=== PATIENT | male | born 1940 | race Caucasian/White ===

== ENCOUNTER 2017-08-04 08:43 | Day surgery (SDC) | payer BC, MEDICARE ==
[~2017-08-04 08:43] MED LIST: Bupivacaine 0.5% 50 ML MDV ONE; Lidocaine 1% with EPINEPHrine 1:100,000 50 ML MDV ONE
[2017-08-04] MEDS ORDERED: Sodium Chloride 0.9% 1,000 ML IV SCH (09:00)
[2017-08-04] MEDS ORDERED: Propofol 200 MG/20 ML SDV ONE (09:16)
[2017-08-04] MEDS ORDERED: Midazolam 1 MG/ML 2 ML SDV ONE (09:16)
[2017-08-04] MEDS ORDERED: fentaNYL 100 MCG/2 ML SDV ONE (09:16)
[2017-08-04] MEDS ORDERED: ceFAZolin 2 GM in Premix Bag 1 BAG IV ONE (10:00)
[2017-08-04] MEDS ORDERED: metroNIDAZOLE/Normal Saline 500 MG in Premix Bag 1 BAG IV ONE (10:00)
== END 2017-08-04 10:30 | disposition home or self-care (01) ==
LOC: JP.SDS 08:43
PROVIDERS: ATTEND Surgery
DX: K40.90 Unilateral inguinal hernia, without obstruction or gangrene, not specified as recurrent (principal); Z53.9 Procedure and treatment not carried out, unspecified reason
CPT/HCPCS: J2250; J2704; J3010; J7030

== ENCOUNTER 2017-08-31 12:16 | Emergency (ER) | payer BC ==
--- NOTE | 2017-08-31 13:39 | EDM.PDOC ---
ED HPI GENERAL MEDICAL PROBLEM - General Chief Complaint: General Stated Complaint: MEDICAL [facility]IA [facility] Time Seen by Provider: 08/31/17 13:39 Source of Information: Reports: Patient History Limitations: Reports: No Limitations - History of Present Illness INITIAL COMMENTS - FREE TEXT/NARRATIVE: PT ARRIVED WITH SWELLING AND INCREASED PAIN IN THE LEFT GROIN. hE HAD A STENT PUT IN TO GO TO THE [facility] AND FEMORAL Onset: Gradual, Other (LAST FEW DAYS) Duration: Day(s):, Getting Worse Location: Reports: Other (PAIN LEFT GROIN) Quality: Reports: Throbbing Associated Symptoms: Reports: No Other Symptoms Left Groin Pain Score (Numeric/FACES): 3 - Related Data Allergies Allergy/AdvReac Type Severity Reaction Status Date / Time amlodipine Allergy Swelling Verified 08/31/17 12:28 simvastatin Allergy Cough Verified 08/31/17 12:28 Home Meds: Home Meds Acetaminophen [Tylenol Extra Strength] 650 mg PO Q6H PRN 05/05/13 [History] Losartan [Cozaar] 25 mg PO DAILY 05/05/13 [History] Rosuvastatin [Crestor] 20 mg PO DAILY 08/02/17 [History] Past Medical History HEENT History: Reports: Hard of Hearing, Impaired Vision Cardiovascular History: Reports: High Cholesterol, Hypertension Gastrointestinal History: Reports: Chronic Constipation Genitourinary History: Reports: Other (See Below) Other Genitourinary History: only has one kidney Musculoskeletal History: Reports: Arthritis Neurological History: Reports: Concussion - Infectious Disease History Infectious Disease History: Reports: Chicken Pox, Measles, Mumps - Past Surgical History HEENT Surgical History: Reports: None Cardiovascular Surgical History: Reports: Carotid Stents GI Surgical History: Reports: Hernia, Inguinal Other GI Surgeries/Procedures: having inguinal hernia repair today Male Surgical History: Reports: Other (See Below) Other Male Surgeries/Procedures: one testicle removed Neurological Surgical History: Reports: None Musculoskeletal Surgical History: Reports: None Social & Family History - Tobacco Use Smoking Status *Q: Current Every Day Smoker Years of Tobacco use: 50 Packs/Tins Daily: 0.5 Used Tobacco, but Quit: No - Caffeine Use Caffeine Use: Reports: Coffee Caffeine Use Comment: 4 cups/daily - Recreational Drug Use Recreational Drug Use: No ED ROS GENERAL - Review of Systems Review Of Systems: See Below Constitutional: Reports: No Symptoms HEENT: Reports: No Symptoms Respiratory: Reports: No Symptoms Cardiovascular: Reports: No Symptoms Endocrine: Reports: No Symptoms GI/Abdominal: Reports: No Symptoms : Reports: No Symptoms Musculoskeletal: Reports: Other (PT HAS SHOOTING PAIN IN THE LEFT GROIN AND THAT HAS INCREASED. ) Neurological: Reports: No Symptoms, Other ( SHOOTING PAIN IN THE GROIN. ) ED EXAM, GENERAL - Physical Exam Exam: See Below Free Text/Narrative:: PT ARRIVED WITH SWELLING AND DISCOLORATION IN THE LEFT GROIN. hE HAS A PALBABLE HEMATOMA. hE HAS GREAT ARTERIAL PULSES PRESENT. Exam Limited By: No Limitations General Appearance: Alert, Moderate Distress Ears: Normal TMs Nose: Normal Inspection Throat/Mouth: Normal Inspection Head: Atraumatic Neck: Normal Inspection Respiratory/Chest: No Respiratory Distress Cardiovascular: Regular Rate, Rhythm GI/Abdominal: Soft, Non-Tender (Male) Exam: Deferred Rectal (Males) Exam: Deferred Back Exam: Normal Inspection Extremities: Other (LEFT LEG HAS A GREAT PULSE AND IS WARM. hE HAS A MASS IN THE GROIN. hE HAD AN US WHICH REVEALED A PSUEDOANEUYISM PRESENT. hE HAS POOR FLOW THROUGH THE LEFT FEMORAL VEIN. ) Neurological: Alert, Oriented Course - Vital Signs Last Recorded V/S: Last Vital Signs Temp 36.5 C 08/31/17 12:40 Pulse 88 08/31/17 12:40 Resp 14 08/31/17 12:40 BP 145/82 H 08/31/17 13:43 Pulse Ox 100 08/31/17 12:40 - Orders/Labs/Meds Orders: Active Orders 24 hr Category Date Time Status BASIC METABOLIC PANEL,BMP [CHEM] Stat Lab 08/31/17 15:05 Ordered CBC WITH AUTO DIFF [HEME] Urgent Lab 08/31/17 15:05 Ordered - Re-Assessments/Exams Free Text/Narrative Re-Assessment/Exam: 08/31/17 15:17 dR Mckeon WAS CONSULTED AND THE PT IS TO GO TO THE er AND HE WILL WORK ON THE PSEUDOANEUYISM. , Departure - Departure Time of Disposition: 15:18 Disposition: DC/Tfer to Acute Hospital 02 Condition: Fair Clinical Impression: Pseudoaneurysm - Discharge Information Referrals: PCP,None [Primary Care Provider] - Forms: ED Department Discharge Care Plan Goals: TO er AT [facility]. - My Orders Last 24 Hours: My Active Orders 08/31/17 15:05 BASIC METABOLIC PANEL,BMP [CHEM] Stat CBC WITH AUTO DIFF [HEME] Urgent - Assessment/Plan Last 24 Hours: My Active Orders 08/31/17 15:05 BASIC METABOLIC PANEL,BMP [CHEM] Stat CBC WITH AUTO DIFF [HEME] Urgent
--- NOTE | 2017-08-31 15:06 | US ---
VL Duplex [facility] CLINICAL HISTORY: Left inguinal mass, previous material catheterization FINDINGS: There is a hematoma in the left inguinal region adjoining the left femoral artery and measu res 6 x 4 x 5 cm. There is internal flow consistent with a pseudoaneurysm. The the neck measures appr oximately 5 mm anteriorly. There is compression of the femoral vein with significantly diminished gucci w. IMPRESSION: 6 x 5 x 4 cm hematoma with a 3.0 x 2.5 cm pseudoaneurysm off the common femoral artery. Compression of the common femoral vein with diminished flow Dr. Connolly was notified of the findings at the time of this dictation at 2:55 PM
[2017-08-31] MEDS ORDERED: Acetaminophen/oxyCODONE 325-7.5 MG Tab PO ONE (15:12)
[2017-08-31] MEDS ORDERED: Sodium Chloride 0.9% 10 ML Syringe FLUSH PRN (15:25)
[2017-08-31] MEDS ORDERED: Ondansetron 4 MG/2 ML SDV IVPUSH ONE (15:25)
[2017-08-31] MEDS ORDERED: HYDROmorphone 0.5 MG/0.5 ML Syringe IVPUSH ONE (15:25)
== END 2017-08-31 16:08 ==
LOC: JP.ED 12:16
DX: I72.9 Aneurysm of unspecified site (principal); E78.00 Pure hypercholesterolemia, unspecified; I10 Essential (primary) hypertension; F17.210 Nicotine dependence, cigarettes, uncomplicated; Z88.8 Allergy status to other drugs, medicaments and biological substances; Z79.899 Other long term (current) drug therapy
CPT/HCPCS: 36415; 80048; 85025; 93979; 96374; 96375; 99285; J1170; J2405; J7050

== ENCOUNTER 2020-02-06 07:16 | Inpatient (IN) | payer MEDICARE, BC ==
--- NOTE | 2020-02-06 08:12 | EDM.PDOC ---
ED HPI GENERAL MEDICAL PROBLEM - General Chief Complaint: Lower Extremity Injury/Pain Stated Complaint: HIP PAIN Time Seen by Provider: 02/06/20 07:50 Source of Information: Reports: Patient, Family History Limitations: Reports: No Limitations - History of Present Illness INITIAL COMMENTS - FREE TEXT/NARRATIVE: 79-year-old male is in with right hip pain after slipping on the ice and falling 2 days ago. He has pain centered in the right hip radiating down into the right femur to just above his knee. It is painful to bear weight and is using his 's walker to get around. No bruising or asymmetry, no other injury. He is usually very healthy and active. Onset: Sudden Duration: Day(s): (2 days ago) Location: Reports: Lower Extremity, Right Quality: Reports: Ache, Sharp Worsens with: Reports: Other (Weightbearing), Movement Associated Symptoms: Reports: No Other Symptoms - Related Data Allergies Allergy/AdvReac Type Severity Reaction Status Date / Time amlodipine Allergy Swelling Verified 02/06/20 08:04 aspirin Allergy Other Verified 02/06/20 08:04 rosuvastatin [From Crestor] Allergy Rash Verified 02/06/20 08:04 atorvastatin AdvReac Muscle Verified 02/06/20 08:04 Aches lisinopril AdvReac Cough Verified 02/06/20 08:04 simvastatin AdvReac Cough Verified 02/06/20 08:04 Home Meds: Home Meds Acetaminophen [Tylenol Extra Strength] 650 mg PO Q6H PRN 05/05/13 [History] Ezetimibe 10 mg PO DAILY 02/06/20 [History] Metoprolol Succinate 25 mg PO DAILY 02/06/20 [History] Past Medical History HEENT History: Reports: Hard of Hearing, Impaired Vision Cardiovascular History: Reports: Aneurysm, High Cholesterol, Hypertension Other Cardiovascular History: AAA repair - "years ago" Gastrointestinal History: Reports: Chronic Constipation, Colon Polyp Genitourinary History: Reports: Other (See Below) Other Genitourinary History: only has one kidney Musculoskeletal History: Reports: Arthritis Neurological History: Reports: Concussion - Infectious Disease History Infectious Disease History: Reports: Chicken Pox, Measles, Mumps, Pertussis (Whooping Cough), Shingles - Past Surgical History Head Surgeries/Procedures: Reports: None HEENT Surgical History: Reports: Cataract Surgery Cardiovascular Surgical History: Reports: AAA Repair, Carotid Stents, Other (See Below) Other Cardiovascular Surgeries/Procedures: left iliac aneurysm GI Surgical History: Reports: Colonoscopy, Hernia, Inguinal Other GI Surgeries/Procedures: having inguinal hernia repair today Male Surgical History: Reports: Other (See Below) Other Male Surgeries/Procedures: one testicle removed Neurological Surgical History: Reports: None Musculoskeletal Surgical History: Reports: None Dermatological Surgical History: Reports: None Social & Family History - Tobacco Use Tobacco Use Status *Q: Current Every Day Tobacco User Years of Tobacco use: 50 Packs/Tins Daily: 1 - Caffeine Use Caffeine Use: Reports: Coffee, Tea Caffeine Use Comment: 4 cups/daily - Recreational Drug Use Recreational Drug Use: No Review of Systems - Review of Systems Review Of Systems: See Below Constitutional: Denies: Fever Respiratory: Reports: No Symptoms Cardiovascular: Reports: No Symptoms GI/Abdominal: Reports: No Symptoms Genitourinary: Reports: No Symptoms Skin: Reports: No Symptoms. Denies: Bruising Neurological: Denies: Paresthesia (No numbness or radiculopathy to the extremities) Psychiatric: Reports: No Symptoms ED EXAM, GENERAL - Physical Exam Exam: See Below Exam Limited By: No Limitations General Appearance: Alert, No Apparent Distress, Other (Fairly comfortable when lying supine) Head: Atraumatic Respiratory/Chest: No Respiratory Distress, Lungs Clear Cardiovascular: Regular Rate, Rhythm GI/Abdominal: Non-Tender Extremities: Other (Very tender to palpation over the right greater trochanteric area into the proximal femur. Increased pain with passive range of motion but no asymmetry, shortening or rotation of the extremity) Neurological: Alert, Oriented Psychiatric: Normal Affect, Normal Mood Skin Exam: Warm, Dry, Other (No bruising is present over the injured area) Course - Vital Signs Last Recorded V/S: Last Vital Signs Temp 96.8 F L 02/06/20 12:20 Pulse 64 02/06/20 12:20 Resp 18 02/06/20 12:20 BP 177/92 H 02/06/20 12:20 Pulse Ox 97 02/06/20 12:20 - Orders/Labs/Meds Orders: Medication Orders Acetaminophen (Tylenol) 650 mg PO Q4H PRN PRN Reason: Pain (Mild 1-3)/fever Ezetimibe (Zetia) 10 mg PO DAILY SAUNDRA Hydromorphone HCl (Dilaudid) 0.5 mg IVPUSH Q2H PRN PRN Reason: Pain (severe 7-10) Lactated Ringer's (Ringers, Lactated) 1,000 mls @ 100 mls/hr IV ASDIRECTED SAUNDRA Lorazepam (Ativan) 0.5 mg IVPUSH Q4H PRN PRN Reason: Nausea/Vomiting Magnesium Hydroxide (Milk Of Magnesia) 30 ml PO Q12H PRN PRN Reason: Constipation Melatonin (Melatonin) 9 mg PO BEDTIME PRN PRN Reason: Sleep Metoprolol Succinate (Toprol Xl) 25 mg PO DAILY SAUNDRA Ondansetron HCl (Zofran) 4 mg IV Q6H PRN PRN Reason: Nausea/Vomiting Ondansetron HCl (Zofran Odt) 4 mg PO Q6H PRN PRN Reason: Nausea able to take PO Oxycodone HCl (Oxycodone) 5 - 10 mg PO Q4H PRN PRN Reason: Pain Senna/Docusate Sodium (Senna Plus) 1 tab PO BID PRN PRN Reason: Constipation Labs: Laboratory Tests 02/06/20 02/06/20 02/06/20 Range/Units 09:09 10:26 10:26 WBC 7.5 (4.5-11.0) K/uL RBC 5.52 (4.30-5.90) M/uL Hgb 16.0 H D (12.0-15.0) g/dL Hct 48.9 (40.0-54.0) % MCV 89 (80-98) fL MCH 29 (27-31) pg MCHC 33 (32-36) % Plt Count 116 L (150-400) K/uL Neut % (Auto) 77 H (36-66) % Lymph % (Auto) 13 L (24-44) % [place] % (Auto) 8 H (2-6) % Eos % (Auto) 2 (2-4) % Baso % (Auto) 1 (0-1) % Sodium 141 (140-148) mmol/L Potassium 3.9 (3.6-5.2) mmol/L Chloride 103 (100-108) mmol/L Carbon Dioxide 30 (21-32) mmol/L Anion Gap 8.1 (5.0-14.0) mmol/L BUN 15 (7-18) mg/dL Creatinine 1.3 (0.8-1.3) mg/dL Est Cr Clr Drug Dosing 50.68 mL/min Estimated GFR (MDRD) 54 L (>60) Glucose 94 (74-106) mg/dL Calcium 8.9 (8.5-10.1) mg/dL SARS-CoV-2 RNA (TIRSO) Negative (NEGATIVE) Meds: Medications Generic Name Dose Route Start Last Admin Trade Name Tang PRN Reason Stop Dose Admin Acetaminophen 650 mg 02/06/20 11:55 Tylenol PO Q4H PRN Pain (Mild 1-3)/fever Ezetimibe 10 mg 02/07/20 09:00 Zetia PO DAILY SAUNDRA Hydromorphone HCl 0.5 mg 02/06/20 11:55 Dilaudid IVPUSH Q2H PRN Pain (severe 7-10) Lactated Ringer's 1,000 mls @ 100 mls/hr 02/06/20 11:55 Ringers, Lactated IV ASDIRECTED [facility] Lorazepam 0.5 mg 02/06/20 11:55 Ativan IVPUSH Q4H PRN Nausea/Vomiting Magnesium Hydroxide 30 ml 02/06/20 11:55 Milk Of Magnesia PO Q12H PRN Constipation Melatonin 9 mg 02/06/20 11:55 Melatonin PO BEDTIME PRN Sleep Metoprolol Succinate 25 mg 02/07/20 09:00 Toprol Xl PO DAILY [facility] Ondansetron HCl 4 mg 02/06/20 11:55 Zofran IV Q6H PRN Nausea/Vomiting Ondansetron HCl 4 mg 02/06/20 11:55 Zofran Odt PO Q6H PRN Nausea able to take PO Oxycodone HCl 5 - 10 mg 02/06/20 11:55 Oxycodone PO Q4H PRN Pain Senna/Docusate Sodium 1 tab 02/06/20 11:55 Senna Plus PO BID PRN Constipation Discontinued Medications Generic Name Dose Route Start Last Admin Trade Name Tang PRN Reason Stop Dose Admin Bupivacaine HCl Confirm 02/06/20 11:52 Marcaine 0.5% Administered 02/06/20 11:53 Dose 50 ml .ROUTE .STK-MED ONE Fentanyl Confirm 02/06/20 10:42 Sublimaze Administered 02/06/20 10:43 Dose 100 mcg .ROUTE .STK-MED ONE Midazolam HCl Confirm 02/06/20 10:42 Versed 1 Mg/Ml Administered 02/06/20 10:43 Dose 2 mg .ROUTE .STK-MED ONE Propofol Confirm 02/06/20 10:42 Diprivan 20 Ml Administered 02/06/20 10:43 Dose 200 mg .ROUTE .STK-MED ONE - Re-Assessments/Exams Free Text/Narrative Re-Assessment/Exam: 02/06/20 08:12 A right hip with pelvis, and right femur x-rays were obtained. 02/06/20 09:12 X-ray shows a likely fracture of the intertrochanteric area, the CT was ordered as well as a coronavirus. 02/06/20 10:28 CT confirmed a minimally displaced intertrochanteric fracture on the right side. Patient will be admitted by the hospitalist service with consultation to orthopedics for surgical repair. 02/06/20 12:34 Coronavirus negative, labs reassuring Departure - Departure Time of Disposition: 11:20 Disposition: Admitted As Inpatient 68 Clinical Impression: Closed intertrochanteric fracture of right hip Qualifiers: Encounter type: initial encounter Fracture alignment: nondisplaced Qualified Code(s): S72.144A - Nondisplaced intertrochanteric fracture of right femur, initial encounter for closed fracture - Discharge Information Sepsis Event Note (ED) - Evaluation Sepsis Screening Result: No Definite Risk - Focused Exam Vital Signs: Vital Signs Temp Pulse Resp BP 02/06/20 07:34 98.4 F 70 18 165/97 H
--- NOTE | 2020-02-06 09:00 | CR ---
Pelvis 1V or 2V, Femur Min 2V Rt CLINICAL HISTORY: Pain, fall FINDINGS: There is some foreshortening of the right proximal femur. There is oblique linear lucency through the trochanteric region. There are osteoarthritic changes in both hips, greater on the right. Patient has had previous aorto iliac stent grafting. IMPRESSION: Intertrochanteric fracture right femur Femur Min 2V Rt CLINICAL HISTORY: Pain, fall FINDINGS: There is an intertrochanteric fracture of the right femur.. There is osteoarthritis in the right knee. 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
--- NOTE | 2020-02-06 10:14 | CT ---
CT Hip wo Cont Rt CLINICAL HISTORY: Femoral fracture COMPARISON: None TECHNIQUE: Thin section axial contiguous tomographic sections were obtained through the right hip without contrast. Auto dosage reduction and iterative reconstruction techniques employed. FINDINGS: There is a minimally displaced fracture through the greater trochanter. There is also cortical defect in the medial posterior portion of the lesser trochanter. There is no hematoma. There are osteoarthritic changes in the acetabulum with subchondral cyst formation. There is periarticular spurring. IMPRESSION: Minimally displaced intertrochanteric fracture of the right femur Osteoarthritis in the right hip
[2020-02-06] MEDS ORDERED: Propofol 200 MG/20 ML SDV ONE (10:42)
[2020-02-06] MEDS ORDERED: fentaNYL 100 MCG/2 ML SDV ONE (10:42)
[2020-02-06] MEDS ORDERED: Midazolam 1 MG/ML 2 ML SDV ONE (10:42)
--- NOTE | 2020-02-06 11:04 | PCM.HP.2 ---
H&P History of Present Illness - General Date of Service: 02/06/20 Admit Problem/Dx: Admission Diagnosis/Problem Admission Diagnosis/Problem Fracture of hip Source of Information: Patient, Family, Provider History Limitations: Reports: No Limitations - History of Present Illness Initial Comments - Free Text/Narative: CC: I hurt my hip HPI: Jhony presents to the emergency room with 3 days of right hip pain that started after a fall at home. He describes severe and sharp pain in the right hip with any sort of weightbearing or bending at the hip. Pain gets better when he lays down and relaxes. Tylenol helped the pain as well. Pain has not been getting better so he thought he better get checked out today. His fall was mechanical and accidental. Otherwise he feels well. No recent difficulties with fevers, shortness of breath or chest pain. No change in bowel or bladder habits. Good functional status and he can achieve more than 4 METS without any difficulty. No previous history of difficulty with anesthesia. Work-up in the emergency room revealed evidence for a mildly displaced intertrochanteric fracture of the right hip. He will be admitted for surgical management. Right Hip Pain Score (Numeric/FACES): 3 - Related Data Allergies/Adverse Reactions: Allergies Allergy/AdvReac Type Severity Reaction Status Date / Time amlodipine Allergy Swelling Verified 02/06/20 08:04 aspirin Allergy Other Verified 02/06/20 08:04 rosuvastatin [From Crestor] Allergy Rash Verified 02/06/20 08:04 atorvastatin AdvReac Muscle Verified 02/06/20 08:04 Aches lisinopril AdvReac Cough Verified 02/06/20 08:04 simvastatin AdvReac Cough Verified 02/06/20 08:04 Home Medications: Home Meds Acetaminophen [Tylenol Extra Strength] 650 mg PO Q6H PRN 05/05/13 [History] Ezetimibe 10 mg PO DAILY 02/06/20 [History] Metoprolol Succinate 25 mg PO DAILY 02/06/20 [History] Past Medical History HEENT History: Reports: Hard of Hearing, Impaired Vision Cardiovascular History: Reports: Aneurysm, High Cholesterol, Hypertension Other Cardiovascular History: AAA repair - "years ago" Gastrointestinal History: Reports: Chronic Constipation, Colon Polyp Genitourinary History: Reports: Other (See Below) Other Genitourinary History: only has one kidney Musculoskeletal History: Reports: Arthritis Neurological History: Reports: Concussion - Infectious Disease History Infectious Disease History: Reports: Chicken Pox, Measles, Mumps, Pertussis (Whooping Cough), Shingles - Past Surgical History Head Surgeries/Procedures: Reports: None HEENT Surgical History: Reports: Cataract Surgery Cardiovascular Surgical History: Reports: AAA Repair, Carotid Stents, Other (See Below) Other Cardiovascular Surgeries/Procedures: left iliac aneurysm GI Surgical History: Reports: Colonoscopy, Hernia, Inguinal Other GI Surgeries/Procedures: having inguinal hernia repair today Male Surgical History: Reports: Other (See Below) Other Male Surgeries/Procedures: one testicle removed Neurological Surgical History: Reports: None Musculoskeletal Surgical History: Reports: None Dermatological Surgical History: Reports: None Social & Family History - Family History Cardiac: Denies: CAD Other Family History: No family history of difficulty with anesthesia - Tobacco Use Tobacco Use Status *Q: Current Every Day Tobacco User Years of Tobacco use: 50 Packs/Tins Daily: 1 - Caffeine Use Caffeine Use: Reports: Coffee, Tea Caffeine Use Comment: 4 cups/daily - Recreational Drug Use Recreational Drug Use: No H&P Review of Systems - Review of Systems: Review Of Systems: See Below Free Text/Narrative: A complete 12 point review of systems was obtained. Pertinent positives and negatives are noted in the history of present illness. All other systems were reviewed and were negative except as noted. Exam - Exam Exam: See Below - Vital Signs Vital Signs: Last Vital Signs Temp 36.9 C 02/06/20 07:34 Pulse 70 02/06/20 07:34 Resp 18 02/06/20 07:34 BP 165/97 H 02/06/20 07:34 Pulse Ox Weight: 79.832 kg - Exam Quality Assessment: No: Supplemental Oxygen General: Alert, Oriented, Cooperative. No: Mild Distress HEENT: Conjunctiva Clear, Mucosa Moist & [place] Neck: Supple, Trachea Midline. No: Lymphadenopathy Lungs: Clear to Auscultation, Normal Respiratory Effort Cardiovascular: Regular Rate, Regular Rhythm GI/Abdominal Exam: Normal Bowel Sounds, Soft, Non-Tender, No Distention Extremities: No Pedal Edema, Other (ttp right lateral hip ). No: Increased Warmth Skin: Warm, Dry Neuro Extensive - Mental Status: Alert, Oriented x3, Nl Response to Commands Neuro Extensive - Motor, Sensory, Reflexes: No: Dysarthria, Abnormal Motor, Tremor Psychiatric: Alert, Normal Affect - Patient Data Lab Results Last 24 hrs: Laboratory Results - last 24 hr 02/06/20 02/06/20 02/06/20 Range/Units 09:09 10:26 10:26 WBC 7.5 (4.5-11.0) K/uL RBC 5.52 (4.30-5.90) M/uL Hgb 16.0 H D (12.0-15.0) g/dL Hct 48.9 (40.0-54.0) % MCV 89 (80-98) fL MCH 29 (27-31) pg MCHC 33 (32-36) % Plt Count 116 L (150-400) K/uL Neut % (Auto) 77 H (36-66) % Lymph % (Auto) 13 L (24-44) % [place] % (Auto) 8 H (2-6) % Eos % (Auto) 2 (2-4) % Baso % (Auto) 1 (0-1) % Sodium 141 (140-148) mmol/L Potassium 3.9 (3.6-5.2) mmol/L Chloride 103 (100-108) mmol/L Carbon Dioxide 30 (21-32) mmol/L Anion Gap 8.1 (5.0-14.0) mmol/L BUN 15 (7-18) mg/dL Creatinine 1.3 (0.8-1.3) mg/dL Est Cr Clr Drug Dosing 50.68 mL/min Estimated GFR (MDRD) 54 L (>60) Glucose 94 (74-106) mg/dL Calcium 8.9 (8.5-10.1) mg/dL SARS-CoV-2 RNA (TIRSO) Negative (NEGATIVE) Result Diagrams: 02/06/20 10:26 02/06/20 10:26 Imaging Impressions Last 24 hrs: Images below were all personally reviewed Right hip XR -no evidence for pelvis fracture. Possible fracture of the right greater trochanter Right hip CT -mildly displaced intertrochanteric fracture of the right hip Sepsis Event Note - Evaluation Sepsis Screening Result: No Definite Risk - Focused Exam Vital Signs: Vital Signs Temp Pulse Resp BP 02/06/20 07:34 36.9 C 70 18 165/97 H *Q Meaningful Use (ADM) - VTE *Q VTE Pharmacological Contraindications *Q: Patient Scheduled Surgery - VTE Risk Assess *Q Each Risk Factor Represents 1 Point: None Total Score 1 Point Risk Factors: 0 Each Risk Factor Represents 2 Points: None Total Score 2 Point Risk Factors: 0 Each Risk Factor Represents 3 Points: Age 75 Years or Greater Total Score 3 Point Risk Factors: 3 Each Risk Factor Represents 5 Points: Hip, Pelvis or Leg Fracture, Less than 1 month Total Score 5 Point Risk Factors: 5 Venous Thromboembolism Risk Factor Score *Q: 8 - Problem List (1) Closed intertrochanteric fracture of right hip SNOMED Code(s): 97595459, [id number] ICD Code: S72.141A - DISPLACED INTERTROCHANTERIC FRACTURE OF RIGHT FEMUR, INIT Status: Acute Current Visit: Yes Qualifiers: Encounter type: initial encounter Fracture alignment: nondisplaced Qualified Code(s): S72.144A - Nondisplaced intertrochanteric fracture of right femur, initial encounter for closed fracture Problem List Initiated/Reviewed/Updated: Yes Orders Last 24hrs: Active Orders 24 hr Category Date Time Status Patient Status Manage Transfer [TRANSFER] Routine ADT 02/06/20 10:57 Ordered Resuscitation Status Routine Resus Stat 02/06/20 10:57 Ordered Assessment/Plan Comment:: ASSESSMENT AND PLAN - Mildly displaced intertrochanteric fracture right hip-secondary to mechanical fall at home. Excellent functional status. No obvious contraindications to surgery. No personal or family history of difficulty with anesthesia. Pain controlled at this time. -Surgical intervention with Dr Con Frazier later today -Pain control -Physical therapy tomorrow Maintenance issues - - DVT prophylaxis -mechanical - GI prophylaxis -not indicated - Nutrition -n.p.o. until after surgery - Soares catheter -not indicated at this time CODE STATUS -full code Admission justification - this patient will be admitted for inpatient services and is medically appropriate meeting medical necessity for inpatient admission as outlined in my documentation. I reasonably expect the patient will require inpatient services that span a period time over 2 midnights. I reasonably expect this patient to be discharged or transferred within 96 hours [facility]. Disposition -I would anticipate discharge home after the hospital stay Primary care physician -Dr. Ines Shirley M.D. - Mortality Measure Prognosis:: Good
[2020-02-06] MEDS ORDERED: Bupivacaine 0.5% 50 ML MDV ONE (11:52)
[2020-02-06] MEDS ORDERED: Magnesium Hydroxide 400 MG/5 ML Susp 30 ML Cup PO PRN (11:55)
[2020-02-06] MEDS ORDERED: Ondansetron 4 MG/2 ML SDV IV PRN (11:55)
[2020-02-06] MEDS ORDERED: Ondansetron 4 MG Tab.DIS PO PRN (11:55)
[2020-02-06] MEDS ORDERED: Melatonin 3 MG Tab PO PRN (11:55)
[2020-02-06] MEDS ORDERED: LORazepam 2 MG/ML SDV IVPUSH PRN (11:55)
[2020-02-06] MEDS ORDERED: HYDROmorphone 1 MG/ML Syringe IVPUSH PRN (11:55)
[2020-02-06] MEDS ORDERED: ceFAZolin 2 GM in Premix Bag 1 BAG IV ONE (13:05)
[2020-02-06] MEDS ORDERED: ceFAZolin 1 GM in Sodium Chloride 0.9% 50 ML IV SCH (14:15)
[2020-02-06] MEDS: Lactated Ringers 1,000 ML IV SCH (15:00)
[2020-02-06] MEDS: oxyCODONE 5 MG Tab PO PRN (15:06)
[2020-02-06] MEDS: ceFAZolin 1 GM in Premix Bag 1 BAG IV SCH (20:25)
[2020-02-07] MEDS: Lactated Ringers 1,000 ML IV SCH (00:57)
[2020-02-07] MEDS: ceFAZolin 1 GM in Premix Bag 1 BAG IV SCH (04:14)
[2020-02-07] MEDS: Ezetimibe 10 MG Tab PO SCH (08:11)
[2020-02-07] MEDS: Acetaminophen 325 MG Tab PO PRN ×2 (08:11→18:00)
[2020-02-07] MEDS: Metoprolol Succinate 25 MG Tab.ER PO SCH (08:11)
[2020-02-07] MEDS: Enoxaparin 40 MG/0.4 ML Syringe SUBCUT SCH (08:11)
--- NOTE | 2020-02-07 10:30 | PCM.PN ---
- General Info Date of Service: 02/07/20 Subjective Update: No acute events overnight. Patient had successful surgery to repair his hip fracture yesterday afternoon. He did have some confusion postoperatively but seems to be doing better today. He had moderate hypertension postoperatively but blood pressures are trending down. Pain is well controlled. He has not had any fevers. No nausea or abdominal pain. Functional Status: Reports: Pain Controlled, Tolerating Diet - Review of Systems General: Denies: Fever - Patient Data Vitals - Most Recent: Last Vital Signs Temp 37.1 C 02/07/20 10:16 Pulse 76 02/07/20 10:16 Resp 18 02/07/20 10:16 BP 156/79 H 02/07/20 10:16 Pulse Ox 98 02/07/20 10:16 Weight - Most Recent: 79.832 kg I&O - Last 24 Hours: Intake & Output 02/06/20 02/07/20 02/07/20 22:59 06:59 14:59 Intake Total 252 2331 400 Output Total 585 300 Balance -333 2031 400 Lab Results Last 24 Hours: Laboratory Results - last 24 hr 02/06/20 02/06/20 02/07/20 Range/Units 10:26 10:26 04:33 WBC 7.5 9.0 (4.5-11.0) K/uL RBC 5.52 4.84 (4.30-5.90) M/uL Hgb 16.0 H D 14.1 (12.0-15.0) g/dL Hct 48.9 43.3 (40.0-54.0) % MCV 89 90 (80-98) fL MCH 29 29 (27-31) pg MCHC 33 33 (32-36) % Plt Count 116 L 105 L (150-400) K/uL Neut % (Auto) 77 H (36-66) % Lymph % (Auto) 13 L (24-44) % [place] % (Auto) 8 H (2-6) % Eos % (Auto) 2 (2-4) % Baso % (Auto) 1 (0-1) % Sodium 141 (140-148) mmol/L Potassium 3.9 (3.6-5.2) mmol/L Chloride 103 (100-108) mmol/L Carbon Dioxide 30 (21-32) mmol/L Anion Gap 8.1 (5.0-14.0) mmol/L BUN 15 (7-18) mg/dL Creatinine 1.3 (0.8-1.3) mg/dL Est Cr Clr Drug Dosing 50.68 mL/min Estimated GFR (MDRD) 54 L (>60) Glucose 94 (74-106) mg/dL Calcium 8.9 (8.5-10.1) mg/dL Med Orders - Current: Current Medications Acetaminophen (Tylenol) 650 mg PO Q4H PRN PRN Reason: Pain (Mild 1-3)/fever Last Admin: 02/07/20 08:11 Dose: 650 mg Documented by: Ezetimibe (Zetia) 10 mg PO DAILY COUNTS [facility]CLUDE 234 BEDS AT THE [facility] Last Admin: 02/07/20 08:11 Dose: 10 mg Documented by: Enoxaparin Sodium (Lovenox) 40 mg SUBCUT DAILY COUNTS INCLUDE 234 BEDS AT THE [facility] Last Admin: 02/07/20 08:11 Dose: 40 mg Documented by: Hydromorphone HCl (Dilaudid) 0.5 mg IVPUSH Q2H PRN PRN Reason: Pain (severe 7-10) Last Admin: 02/06/20 15:08 Dose: 0.5 mg Documented by: Lactated Ringer's (Ringers, Lactated) 1,000 mls @ 100 mls/hr IV ASDIRECTED COUNTS INCLUDE 234 BEDS AT THE [facility] Last Admin: 02/07/20 00:57 Dose: 100 mls/hr Documented by: Lorazepam (Ativan) 0.5 mg IVPUSH Q4H PRN PRN Reason: Nausea/Vomiting Magnesium Hydroxide (Milk Of Magnesia) 30 ml PO Q12H PRN PRN Reason: Constipation Melatonin (Melatonin) 9 mg PO BEDTIME PRN PRN Reason: Sleep Metoprolol Succinate (Toprol Xl) 25 mg PO DAILY COUNTS INCLUDE 234 BEDS AT THE [facility] Last Admin: 02/07/20 08:11 Dose: 25 mg Documented by: Ondansetron HCl (Zofran) 4 mg IV Q6H PRN PRN Reason: Nausea/Vomiting Ondansetron HCl (Zofran Odt) 4 mg PO Q6H PRN PRN Reason: Nausea able to take PO Oxycodone HCl (Oxycodone) 5 - 10 mg PO Q4H PRN PRN Reason: Pain Last Admin: 02/06/20 15:06 Dose: 10 mg Documented by: Senna/Docusate Sodium (Senna Plus) 1 tab PO BID PRN PRN Reason: Constipation Discontinued Medications Bupivacaine HCl (Marcaine 0.5%) Confirm Administered Dose 50 ml .ROUTE .STK-MED ONE Stop: 02/06/20 11:53 Fentanyl (Sublimaze) Confirm Administered Dose 100 mcg .ROUTE .STK-MED ONE Stop: 02/06/20 10:43 Cefazolin Sodium/Dextrose 2 gm (/ Premix) 50 mls @ 100 mls/hr IV ONETIME ONE Stop: 02/06/20 13:34 Last Admin: 02/06/20 13:07 Dose: 100 mls/hr Documented by: Cefazolin Sodium/Dextrose 1 gm (/ Premix) 50 mls @ 100 mls/hr IV Q8H SAUNDRA Stop: 02/07/20 05:29 Last Admin: 02/07/20 04:14 Dose: 100 mls/hr Documented by: Midazolam HCl (Versed 1 Mg/Ml) Confirm Administered Dose 2 mg .ROUTE .STK-MED ONE Stop: 02/06/20 10:43 Propofol (Diprivan 20 Ml) Confirm Administered Dose 200 mg .ROUTE .STK-MED ONE Stop: 02/06/20 10:43 - Exam Quality Assessment: No: Supplemental Oxygen General: Alert, Oriented, Cooperative, No Acute Distress Lungs: Normal Respiratory Effort GI/Abdominal Exam: Soft, No Distention Extremities: No Pedal Edema Skin: Warm, Dry Wound/Incisions: Dressing Dry and Intact Psy/Mental Status: Alert, Normal Affect Sepsis Event Note - Evaluation Sepsis Screening Result: No Definite Risk - Focused Exam Vital Signs: Vital Signs Temp Temp Pulse Pulse Resp BP BP 02/07/20 10:16 37.1 C 76 18 156/79 H 02/07/20 08:11 74 163/64 H 02/07/20 06:53 36.7 C 75 18 163/84 H 02/07/20 03:46 36.4 C 73 18 142/87 H 02/06/20 22:36 37 C 82 16 136/86 Pulse Ox 02/07/20 10:16 98 02/07/20 08:11 02/07/20 06:53 94 L 02/07/20 03:46 94 L 02/06/20 22:36 94 L - Problem List & Annotations (1) Closed intertrochanteric fracture of right hip SNOMED Code(s): 49039736, 28234482280157304 Code(s): S72.141A - DISPLACED INTERTROCHANTERIC FRACTURE OF RIGHT FEMUR, INIT Status: Acute Current Visit: Yes Qualifiers: Encounter type: initial encounter Fracture alignment: nondisplaced Qualified Code(s): S72.144A - Nondisplaced intertrochanteric fracture of right femur, initial encounter for closed fracture - Problem List Review Problem List Initiated/Reviewed/Updated: Yes - My Orders Last 24 Hours: My Active Orders 02/06/20 10:57 Resuscitation Status Routine 02/06/20 11:55 Acetaminophen [TylenoL] 650 mg PO Q4H PRN Docusate Sodium/Sennosides [Senna Plus] 1 tab PO BID PRN HYDROmorphone [Dilaudid] 0.5 mg IVPUSH Q2H PRN LORazepam [Ativan] 0.5 mg IVPUSH Q4H PRN Lactated Ringers [Ringers, Lactated] 1,000 ml IV ASDIRECTED Magnesium Hydroxide [Milk of Magnesia] 30 ml PO Q12H PRN Melatonin 9 mg PO BEDTIME PRN Ondansetron [Zofran ODT] 4 mg PO Q6H PRN Ondansetron [Zofran] 4 mg IV Q6H PRN oxyCODONE 5 - 10 mg PO Q4H PRN 02/06/20 11:55 Patient Status [ADT] Routine Notify Provider Vital Signs [RC] ASDIRECTED Oxygen Therapy [RC] PRN Up With Assistance [RC] ASDIRECTED VTE/DVT Education [RC] Per Unit Routine Vital Signs [RC] Q4H Consult to Physician [CONS] Routine Sequential Compression Device [OM.PC] Routine VTE Pharmacological Contraindications [AST] Routine 02/07/20 09:00 Ezetimibe [Zetia] 10 mg PO DAILY Metoprolol Succinate [Toprol XL] 25 mg PO DAILY 02/07/20 10:28 Convert IV to Saline Lock [OM.PC] Routine 02/07/20 10:29 DC Soares Catheter [Urinary Catheter Removal] [RC] PER UNIT ROUTINE 02/08/20 05:00 BASIC METABOLIC PANEL,BMP [CHEM] Timed HGB [HEMOGLOBIN] [HEME] Timed - Plan Plan:: ASSESSMENT AND PLAN - Mildly displaced intertrochanteric fracture right hip-secondary to mechanical fall at home. Status post supracondylar IM nailing 02/05. Doing well postoperatively. Pain well controlled. He has been up with physical therapy. -Postoperative care per orthopedic team -Pain control -Physical therapy -Weightbearing as tolerated Maintenance issues - - DVT prophylaxis -mechanical - GI prophylaxis -not indicated - Nutrition -regular diet - Soares catheter -placed at the time of surgery yesterday, will be removed today Disposition -I would anticipate discharge home after the hospital stay Primary care physician -Dr. Ines Shirley M.D.
--- NOTE | 2020-02-07 16:21 | PCM.SURGPN ---
- General Info Date of Service: 02/07/20 Date of Surgery/Procedure: 02/06/20 Post-Op Diagnosis: Intertrochanteric Fracture of Right Hip Functional Status: Reports: Pain Controlled, Tolerating Diet, Ambulating, Incentive Spirometry - Review of Systems General: Reports: No Symptoms HEENT: Reports: No Symptoms Pulmonary: Reports: No Symptoms Cardiovascular: Reports: No Symptoms Gastrointestinal: Reports: No Symptoms Genitourinary: Reports: No Symptoms Musculoskeletal: Reports: Leg Pain Skin: Reports: No Symptoms Psychiatric: Reports: No Symptoms - Patient Data Vitals - Most Recent: Last Vital Signs Temp 97.6 F 02/07/20 14:43 Pulse 82 02/07/20 14:43 Resp 16 02/07/20 14:43 BP 136/78 02/07/20 14:43 Pulse Ox 99 02/07/20 14:43 Weight - Most Recent: 176 lb I&O - Last 24 Hours: Intake & Output 02/07/20 02/07/20 02/07/20 06:59 14:59 22:59 Intake Total 2331 2285 Output Total 300 225 300 Balance 2031 2060 -300 Lab Results Last 24 Hrs: Laboratory Results - last 24 hr 02/07/20 Range/Units 04:33 WBC 9.0 (4.5-11.0) K/uL RBC 4.84 (4.30-5.90) M/uL Hgb 14.1 (12.0-15.0) g/dL Hct 43.3 (40.0-54.0) % MCV 90 (80-98) fL MCH 29 (27-31) pg MCHC 33 (32-36) % Plt Count 105 L (150-400) K/uL Med Orders - Current: Current Medications Acetaminophen (Tylenol) 650 mg PO Q4H PRN PRN Reason: Pain (Mild 1-3)/fever Last Admin: 02/07/20 08:11 Dose: 650 mg Documented by: Ezetimibe (Zetia) 10 mg PO DAILY [facility] Last Admin: 02/07/20 08:11 Dose: 10 mg Documented by: Enoxaparin Sodium (Lovenox) 40 mg SUBCUT DAILY [facility] Last Admin: 02/07/20 08:11 Dose: 40 mg Documented by: Hydromorphone HCl (Dilaudid) 0.5 mg IVPUSH Q2H PRN PRN Reason: Pain (severe 7-10) Last Admin: 02/06/20 15:08 Dose: 0.5 mg Documented by: Lorazepam (Ativan) 0.5 mg IVPUSH Q4H PRN PRN Reason: Nausea/Vomiting Magnesium Hydroxide (Milk Of Magnesia) 30 ml PO Q12H PRN PRN Reason: Constipation Melatonin (Melatonin) 9 mg PO BEDTIME PRN PRN Reason: Sleep Metoprolol Succinate (Toprol Xl) 25 mg PO DAILY [facility] Last Admin: 02/07/20 08:11 Dose: 25 mg Documented by: Ondansetron HCl (Zofran) 4 mg IV Q6H PRN PRN Reason: Nausea/Vomiting Ondansetron HCl (Zofran Odt) 4 mg PO Q6H PRN PRN Reason: Nausea able to take PO Oxycodone HCl (Oxycodone) 5 - 10 mg PO Q4H PRN PRN Reason: Pain Last Admin: 02/06/20 15:06 Dose: 10 mg Documented by: Senna/Docusate Sodium (Senna Plus) 1 tab PO BID PRN PRN Reason: Constipation Discontinued Medications Bupivacaine HCl (Marcaine 0.5%) Confirm Administered Dose 50 ml .ROUTE .STK-MED ONE Stop: 02/06/20 11:53 Fentanyl (Sublimaze) Confirm Administered Dose 100 mcg .ROUTE .STK-MED ONE Stop: 02/06/20 10:43 Lactated Ringer's (Ringers, Lactated) 1,000 mls @ 100 mls/hr IV ASDIRECTED [facility] Last Admin: 02/07/20 00:57 Dose: 100 mls/hr Documented by: Cefazolin Sodium/Dextrose 2 gm (/ Premix) 50 mls @ 100 mls/hr IV ONETIME ONE Stop: 02/06/20 13:34 Last Admin: 02/06/20 13:07 Dose: 100 mls/hr Documented by: Cefazolin Sodium/Dextrose 1 gm (/ Premix) 50 mls @ 100 mls/hr IV Q8H [facility] Stop: 02/07/20 05:29 Last Admin: 02/07/20 04:14 Dose: 100 mls/hr Documented by: Midazolam HCl (Versed 1 Mg/Ml) Confirm Administered Dose 2 mg .ROUTE .STK-MED ONE Stop: 02/06/20 10:43 Propofol (Diprivan 20 Ml) Confirm Administered Dose 200 mg .ROUTE .STK-MED ONE Stop: 02/06/20 10:43 - Exam Wound/Incisions: Dressing Dry and Intact, No Drainage General: Alert, Cooperative, No Acute Distress Extremities: Leg Pain, Limited Range of Motion Skin: Dry, Intact Psy/Mental Status: Alert, Normal Mood Sepsis Event Note - Evaluation Sepsis Screening Result: No Definite Risk - Focused Exam Vital Signs: Vital Signs Temp Pulse Pulse Resp BP BP Pulse Ox 02/07/20 14:43 97.6 F 82 16 136/78 99 02/07/20 10:16 98.8 F 76 18 156/79 H 98 02/07/20 08:11 74 163/64 H 02/07/20 06:53 98.1 F 75 18 163/84 H 94 L - Problem List & Annotations (1) Closed intertrochanteric fracture of right hip SNOMED Code(s): 85291538, [id number] Code(s): S72.141A - DISPLACED INTERTROCHANTERIC FRACTURE OF RIGHT FEMUR, INIT Status: Acute Current Visit: Yes Qualifiers: Encounter type: initial encounter Fracture alignment: nondisplaced Qualified Code(s): S72.144A - Nondisplaced intertrochanteric fracture of right femur, initial encounter for closed fracture - Problem List Review Problem List Initiated/Reviewed/Updated: Yes - My Orders Last 24 Hours: Active Orders 24 hr Category Date Time Status DC Soares Catheter [Urinary Catheter Removal] [RC] PER Care 02/07/20 10:29 Active UNIT ROUTINE Regular Diet [DIET] Diet 02/06/20 Dinner Active BASIC METABOLIC PANEL,BMP [CHEM] Timed Lab 02/08/20 05:00 Ordered HGB [HEMOGLOBIN] [HEME] Timed Lab 02/08/20 05:00 Ordered Enoxaparin [Lovenox] Med 02/07/20 09:00 Active 40 mg SUBCUT DAILY Ezetimibe [Zetia] Med 02/07/20 09:00 Active 10 mg PO DAILY Metoprolol Succinate [Toprol XL] Med 02/07/20 09:00 Active 25 mg PO DAILY Convert IV to Saline Lock [OM.PC] Routine Oth 02/07/20 10:28 Ordered Medication Orders Acetaminophen (Tylenol) 650 mg PO Q4H PRN PRN Reason: Pain (Mild 1-3)/fever Last Admin: 02/07/20 08:11 Dose: 650 mg Documented by: WILLOW Cosigned by: GEOVANY Ezetimibe (Zetia) 10 mg PO DAILY [facility] Last Admin: 02/07/20 08:11 Dose: 10 mg Documented by: WILLOW Cosigned by: GEOVANY Enoxaparin Sodium (Lovenox) 40 mg SUBCUT DAILY [facility] Last Admin: 02/07/20 08:11 Dose: 40 mg Documented by: WILLOW Cosigned by: GEOVANY Hydromorphone HCl (Dilaudid) 0.5 mg IVPUSH Q2H PRN PRN Reason: Pain (severe 7-10) Last Admin: 02/06/20 15:08 Dose: 0.5 mg Documented by: ANDREY Lorazepam (Ativan) 0.5 mg IVPUSH Q4H PRN PRN Reason: Nausea/Vomiting Magnesium Hydroxide (Milk Of Magnesia) 30 ml PO Q12H PRN PRN Reason: Constipation Melatonin (Melatonin) 9 mg PO BEDTIME PRN PRN Reason: Sleep Metoprolol Succinate (Toprol Xl) 25 mg PO DAILY [facility] Last Admin: 02/07/20 08:11 Dose: 25 mg Documented by: WILLOW Cosigned by: GEOVANY Ondansetron HCl (Zofran) 4 mg IV Q6H PRN PRN Reason: Nausea/Vomiting Ondansetron HCl (Zofran Odt) 4 mg PO Q6H PRN PRN Reason: Nausea able to take PO Oxycodone HCl (Oxycodone) 5 - 10 mg PO Q4H PRN PRN Reason: Pain Last Admin: 02/06/20 15:06 Dose: 10 mg Documented by: ANDREY Senna/Docusate Sodium (Senna Plus) 1 tab PO BID PRN PRN Reason: Constipation - Plan Plan (Free Text/Narrative):: Assessment: Patient is a pleasant 79 y/o male, POD #1, status post intramedullary nailing of right intertrochanteric fracture of the hip. Patient tolerated procedure well. He had some post-operative hypertension; blood pressure this afternoon was within normal limits. Patient had some nausea following the operation that has since resolved; ate meals today in the chair. Patient was up with physical therapy ambulating with four wheel walker. Pain is well managed at this time. Plan: Orthopedics to perform dressing change tomorrow morning. Patient to continue with PT and OT tomorrow. Upon discharge, patient will complete outpatient PT and follow up with the Ortho [facility] in 2 weeks.
[2020-02-07] MEDS: oxyCODONE 5 MG Tab PO PRN (20:17)
[2020-02-08] MEDS: Acetaminophen 325 MG Tab PO PRN (07:30)
[2020-02-08] MEDS: Enoxaparin 40 MG/0.4 ML Syringe SUBCUT SCH (08:36)
[2020-02-08] MEDS: Ezetimibe 10 MG Tab PO SCH (08:37)
[2020-02-08] MEDS: Metoprolol Succinate 25 MG Tab.ER PO SCH (08:37)
--- NOTE | 2020-02-08 10:37 | PCM.SURGPN ---
- General Info Date of Service: 02/08/20 Date of Surgery/Procedure: 02/06/20 Post-Op Diagnosis: Intertrochanteric Fracture of Right Hip Functional Status: Reports: Pain Controlled, Tolerating Diet, Ambulating (with four wheel walker ), Urinating - Review of Systems General: Reports: No Symptoms Pulmonary: Reports: No Symptoms Cardiovascular: Reports: No Symptoms Gastrointestinal: Reports: No Symptoms Genitourinary: Reports: No Symptoms Musculoskeletal: Reports: Leg Pain Skin: Reports: No Symptoms Neurological: Reports: No Symptoms Psychiatric: Reports: Confusion - Patient Data Vitals - Most Recent: Last Vital Signs Temp 97.4 F 02/08/20 07:00 Pulse 64 02/08/20 08:37 Resp 18 02/08/20 07:00 BP 165/84 H 02/08/20 08:37 Pulse Ox 96 02/08/20 07:00 Weight - Most Recent: 176 lb I&O - Last 24 Hours: Intake & Output 02/07/20 02/08/20 02/08/20 22:59 06:59 14:59 Intake Total 240 800 400 Output Total 1600 600 Balance -1360 200 400 Lab Results Last 24 Hrs: Laboratory Results - last 24 hr 02/08/20 02/08/20 Range/Units 04:24 04:24 Hgb 12.5 (12.0-15.0) g/dL Sodium 141 (140-148) mmol/L Potassium 4.0 (3.6-5.2) mmol/L Chloride 105 (100-108) mmol/L Carbon Dioxide 28 (21-32) mmol/L Anion Gap 7.9 (5.0-14.0) mmol/L BUN 17 (7-18) mg/dL Creatinine 1.2 (0.8-1.3) mg/dL Est Cr Clr Drug Dosing 54.91 mL/min Estimated GFR (MDRD) 59 L (>60) Glucose 97 (74-106) mg/dL Calcium 8.6 (8.5-10.1) mg/dL Med Orders - Current: Current Medications Acetaminophen (Tylenol) 650 mg PO Q4H PRN PRN Reason: Pain (Mild 1-3)/fever Last Admin: 02/08/20 07:30 Dose: 650 mg Documented by: Ezetimibe (Zetia) 10 mg PO DAILY [facility] Last Admin: 02/08/20 08:37 Dose: 10 mg Documented by: Enoxaparin Sodium (Lovenox) 40 mg SUBCUT DAILY [facility] Last Admin: 02/08/20 08:36 Dose: 40 mg Documented by: Hydromorphone HCl (Dilaudid) 0.5 mg IVPUSH Q2H PRN PRN Reason: Pain (severe 7-10) Last Admin: 02/06/20 15:08 Dose: 0.5 mg Documented by: Lorazepam (Ativan) 0.5 mg IVPUSH Q4H PRN PRN Reason: Nausea/Vomiting Magnesium Hydroxide (Milk Of Magnesia) 30 ml PO Q12H PRN PRN Reason: Constipation Melatonin (Melatonin) 9 mg PO BEDTIME PRN PRN Reason: Sleep Last Admin: 02/07/20 20:17 Dose: 9 mg Documented by: Metoprolol Succinate (Toprol Xl) 25 mg PO DAILY [facility] Last Admin: 02/08/20 08:37 Dose: 25 mg Documented by: Ondansetron HCl (Zofran) 4 mg IV Q6H PRN PRN Reason: Nausea/Vomiting Ondansetron HCl (Zofran Odt) 4 mg PO Q6H PRN PRN Reason: Nausea able to take PO Oxycodone HCl (Oxycodone) 5 - 10 mg PO Q4H PRN PRN Reason: Pain Last Admin: 02/07/20 20:17 Dose: 5 mg Documented by: Senna/Docusate Sodium (Senna Plus) 1 tab PO BID PRN PRN Reason: Constipation Discontinued Medications Bupivacaine HCl (Marcaine 0.5%) Confirm Administered Dose 50 ml .ROUTE .STK-MED ONE Stop: 02/06/20 11:53 Fentanyl (Sublimaze) Confirm Administered Dose 100 mcg .ROUTE .STK-MED ONE Stop: 02/06/20 10:43 Lactated Ringer's (Ringers, Lactated) 1,000 mls @ 100 mls/hr IV ASDIRECTED [facility] Last Admin: 02/07/20 00:57 Dose: 100 mls/hr Documented by: Cefazolin Sodium/Dextrose 2 gm (/ Premix) 50 mls @ 100 mls/hr IV ONETIME ONE Stop: 02/06/20 13:34 Last Admin: 02/06/20 13:07 Dose: 100 mls/hr Documented by: Cefazolin Sodium/Dextrose 1 gm (/ Premix) 50 mls @ 100 mls/hr IV Q8H [facility] Stop: 02/07/20 05:29 Last Admin: 02/07/20 04:14 Dose: 100 mls/hr Documented by: Midazolam HCl (Versed 1 Mg/Ml) Confirm Administered Dose 2 mg .ROUTE .STK-MED ONE Stop: 02/06/20 10:43 Propofol (Diprivan 20 Ml) Confirm Administered Dose 200 mg .ROUTE .STK-MED ONE Stop: 02/06/20 10:43 - Exam Wound/Incisions: Dressing Dry and Intact, No Drainage General: Alert, Cooperative Extremities: Leg Pain, Limited Range of Motion Skin: Dry, Intact Neurological: No New Focal Deficit Psy/Mental Status: Alert, Normal Mood Sepsis Event Note - Evaluation Sepsis Screening Result: No Definite Risk - Focused Exam Vital Signs: Vital Signs Temp Pulse Pulse Resp BP BP BP 02/08/20 08:37 64 165/84 H 02/08/20 07:00 97.4 F 64 18 165/84 H 02/08/20 03:10 97 F 59 L 18 149/79 H 02/07/20 22:29 97.6 F 64 16 155/79 H Pulse Ox 02/08/20 08:37 02/08/20 07:00 96 02/08/20 03:10 95 02/07/20 22:29 97 - Problem List & Annotations (1) Closed intertrochanteric fracture of right hip SNOMED Code(s): 94446467, [id number] Code(s): S72.141A - DISPLACED INTERTROCHANTERIC FRACTURE OF RIGHT FEMUR, INIT Status: Acute Current Visit: Yes Qualifiers: Encounter type: initial encounter Fracture alignment: nondisplaced Qualified Code(s): S72.144A - Nondisplaced intertrochanteric fracture of right femur, initial encounter for closed fracture - Problem List Review Problem List Initiated/Reviewed/Updated: Yes - My Orders Last 24 Hours: Active Orders 24 hr Category Date Time Status DC Soares Catheter [Urinary Catheter Removal] [RC] PER Care 02/07/20 10:29 Active UNIT ROUTINE Convert IV to Saline Lock [OM.PC] Routine Oth 02/07/20 10:28 Ordered Medication Orders Acetaminophen (Tylenol) 650 mg PO Q4H PRN PRN Reason: Pain (Mild 1-3)/fever Last Admin: 02/08/20 07:30 Dose: 650 mg Documented by: JOSÉ MIGUEL Admin: 02/07/20 18:00 Dose: 650 mg Documented by: Admin: 02/07/20 08:11 Dose: 650 mg Documented by: WILLOW Cosigned by: GEOVANY Ezetimibe (Zetia) 10 mg PO DAILY [facility] Last Admin: 02/08/20 08:37 Dose: 10 mg Documented by: JOSÉ MIGUEL Admin: 02/07/20 08:11 Dose: 10 mg Documented by: WILLOW Cosigned by: GEOVANY Enoxaparin Sodium (Lovenox) 40 mg SUBCUT DAILY [facility] Last Admin: 02/08/20 08:36 Dose: 40 mg Documented by: JOSÉ MIGUEL Admin: 02/07/20 08:11 Dose: 40 mg Documented by: WILLOW Cosigned by: GEOVANY Hydromorphone HCl (Dilaudid) 0.5 mg IVPUSH Q2H PRN PRN Reason: Pain (severe 7-10) Last Admin: 02/06/20 15:08 Dose: 0.5 mg Documented by: ANDREY Lorazepam (Ativan) 0.5 mg IVPUSH Q4H PRN PRN Reason: Nausea/Vomiting Magnesium Hydroxide (Milk Of Magnesia) 30 ml PO Q12H PRN PRN Reason: Constipation Melatonin (Melatonin) 9 mg PO BEDTIME PRN PRN Reason: Sleep Last Admin: 02/07/20 20:17 Dose: 9 mg Documented by: AGUS Metoprolol Succinate (Toprol Xl) 25 mg PO DAILY [facility] Last Admin: 02/08/20 08:37 Dose: 25 mg Documented by: JOSÉ MIGUEL Admin: 02/07/20 08:11 Dose: 25 mg Documented by: WILLOW Cosigned by: GEOVANY Ondansetron HCl (Zofran) 4 mg IV Q6H PRN PRN Reason: Nausea/Vomiting Ondansetron HCl (Zofran Odt) 4 mg PO Q6H PRN PRN Reason: Nausea able to take PO Oxycodone HCl (Oxycodone) 5 - 10 mg PO Q4H PRN PRN Reason: Pain Last Admin: 02/07/20 20:17 Dose: 5 mg Documented by: Admin: 02/06/20 15:06 Dose: 10 mg Documented by: ANDREY Senna/Docusate Sodium (Senna Plus) 1 tab PO BID PRN PRN Reason: Constipation - Assessment Assessment (Free Text/Narrative):: Patient is a pleasant 79 y/o male, POD #2, status post intramedullary nailing of the right hip. Patient is alert and cooperative upon visit this morning and is verbal about wanting to be discharged today. Reports good support system at home with his and three children who live nearby. Patient did rip off the original surgical dressing yesterday evening while agitated per nursing report; nursing placed a new dressing yesterday evening. Dressing change was performed again by orthopedic team this morning; incision appeared dry and intact without drainage. Patient is ambulating with four wheel walker with minimal pain (2/10) and reports no pain (0/10) while laying in bed. - Plan Plan (Free Text/Narrative):: Dressing change was completed this morning. Pain is well managed at this time. Patient is to be discharged this afternoon by hospitalist. An order for outpatient PT was signed and sent to [facility], per patient request. Patient to follow up with Orthopedic Clinic in two weeks, advised to call if any questions or concerns arise before then. Patient was agreeable and expressed understanding of this plan.
--- NOTE | 2020-02-08 12:26 | PCM.PN ---
- General Info Date of Service: 02/08/20 Subjective Update: No acute events overnight though the patient has been somewhat confused. He thinks that he is at home with his mother and father and she will give me a cup of coffee if I asked nicely. He knows that he lives in [place] but he is not sure what town he is in right now. He has been pleasant and there have been no behavior issues. Pain has been very well controlled. He has been up and working with physical therapy. Vital signs stable. No fevers. Functional Status: Reports: Pain Controlled, Tolerating Diet - Review of Systems Neurological: Reports: Confusion - Patient Data Vitals - Most Recent: Last Vital Signs Temp 36.6 C 02/08/20 10:35 Pulse 82 02/08/20 10:35 Resp 18 02/08/20 10:35 BP 118/78 02/08/20 10:35 Pulse Ox 96 02/08/20 10:35 Weight - Most Recent: 79.832 kg I&O - Last 24 Hours: Intake & Output 02/07/20 02/08/20 02/08/20 22:59 06:59 14:59 Intake Total 240 800 400 Output Total 1600 600 400 Balance -1360 200 0 Lab Results Last 24 Hours: Laboratory Results - last 24 hr 02/08/20 02/08/20 Range/Units 04:24 04:24 Hgb 12.5 (12.0-15.0) g/dL Sodium 141 (140-148) mmol/L Potassium 4.0 (3.6-5.2) mmol/L Chloride 105 (100-108) mmol/L Carbon Dioxide 28 (21-32) mmol/L Anion Gap 7.9 (5.0-14.0) mmol/L BUN 17 (7-18) mg/dL Creatinine 1.2 (0.8-1.3) mg/dL Est Cr Clr Drug Dosing 54.91 mL/min Estimated GFR (MDRD) 59 L (>60) Glucose 97 (74-106) mg/dL Calcium 8.6 (8.5-10.1) mg/dL Med Orders - Current: Current Medications Acetaminophen (Tylenol) 650 mg PO Q4H PRN PRN Reason: Pain (Mild 1-3)/fever Last Admin: 02/08/20 07:30 Dose: 650 mg Documented by: Ezetimibe (Zetia) 10 mg PO DAILY [facility] Last Admin: 02/08/20 08:37 Dose: 10 mg Documented by: Enoxaparin Sodium (Lovenox) 40 mg SUBCUT DAILY [facility] Last Admin: 02/08/20 08:36 Dose: 40 mg Documented by: Hydromorphone HCl (Dilaudid) 0.5 mg IVPUSH Q2H PRN PRN Reason: Pain (severe 7-10) Last Admin: 02/06/20 15:08 Dose: 0.5 mg Documented by: Lorazepam (Ativan) 0.5 mg IVPUSH Q4H PRN PRN Reason: Nausea/Vomiting Magnesium Hydroxide (Milk Of Magnesia) 30 ml PO Q12H PRN PRN Reason: Constipation Melatonin (Melatonin) 9 mg PO BEDTIME PRN PRN Reason: Sleep Last Admin: 02/07/20 20:17 Dose: 9 mg Documented by: Metoprolol Succinate (Toprol Xl) 25 mg PO DAILY [facility] Last Admin: 02/08/20 08:37 Dose: 25 mg Documented by: Ondansetron HCl (Zofran) 4 mg IV Q6H PRN PRN Reason: Nausea/Vomiting Ondansetron HCl (Zofran Odt) 4 mg PO Q6H PRN PRN Reason: Nausea able to take PO Oxycodone HCl (Oxycodone) 5 - 10 mg PO Q4H PRN PRN Reason: Pain Last Admin: 02/07/20 20:17 Dose: 5 mg Documented by: Senna/Docusate Sodium (Senna Plus) 1 tab PO BID PRN PRN Reason: Constipation Discontinued Medications Bupivacaine HCl (Marcaine 0.5%) Confirm Administered Dose 50 ml .ROUTE .STK-MED ONE Stop: 02/06/20 11:53 Fentanyl (Sublimaze) Confirm Administered Dose 100 mcg .ROUTE .STK-MED ONE Stop: 02/06/20 10:43 Lactated Ringer's (Ringers, Lactated) 1,000 mls @ 100 mls/hr IV ASDIRECTED [facility] Last Admin: 02/07/20 00:57 Dose: 100 mls/hr Documented by: Cefazolin Sodium/Dextrose 2 gm (/ Premix) 50 mls @ 100 mls/hr IV ONETIME ONE Stop: 02/06/20 13:34 Last Admin: 02/06/20 13:07 Dose: 100 mls/hr Documented by: Cefazolin Sodium/Dextrose 1 gm (/ Premix) 50 mls @ 100 mls/hr IV Q8H [facility] Stop: 02/07/20 05:29 Last Admin: 02/07/20 04:14 Dose: 100 mls/hr Documented by: Midazolam HCl (Versed 1 Mg/Ml) Confirm Administered Dose 2 mg .ROUTE .STK-MED ONE Stop: 02/06/20 10:43 Propofol (Diprivan 20 Ml) Confirm Administered Dose 200 mg .ROUTE .STK-MED ONE Stop: 02/06/20 10:43 - Exam Quality Assessment: No: Supplemental Oxygen General: Alert, Cooperative, No Acute Distress. No: Oriented HEENT: Pupils Equal Lungs: Normal Respiratory Effort Cardiovascular: Regular Rate, Regular Rhythm GI/Abdominal Exam: Soft, No Distention Extremities: No Pedal Edema Skin: Warm, Dry Wound/Incisions: Dressing Dry and Intact Psy/Mental Status: Alert, Normal Affect. No: Agitated Sepsis Event Note - Evaluation Sepsis Screening Result: No Definite Risk - Focused Exam Vital Signs: Vital Signs Temp Pulse Pulse Resp BP BP BP 02/08/20 10:35 36.6 C 82 18 118/78 02/08/20 08:37 64 165/84 H 02/08/20 07:00 36.3 C 64 18 165/84 H 02/08/20 03:10 36.1 C 59 L 18 149/79 H Pulse Ox 02/08/20 10:35 96 02/08/20 08:37 02/08/20 07:00 96 02/08/20 03:10 95 - Problem List & Annotations (1) Closed intertrochanteric fracture of right hip SNOMED Code(s): 03158316, 16855389277448059 Code(s): S72.141A - DISPLACED INTERTROCHANTERIC FRACTURE OF RIGHT FEMUR, INIT Status: Acute Current Visit: Yes Qualifiers: Encounter type: initial encounter Fracture alignment: nondisplaced Qualified Code(s): S72.144A - Nondisplaced intertrochanteric fracture of right femur, initial encounter for closed fracture - Problem List Review Problem List Initiated/Reviewed/Updated: Yes - My Orders Last 24 Hours: My Active Orders 02/08/20 12:23 traMADol [Ultram] 50 mg PO Q4H PRN 02/08/20 21:00 Melatonin 9 mg PO BEDTIME - Plan Plan:: ASSESSMENT AND PLAN - Mildly displaced intertrochanteric fracture right hip-secondary to mechanical fall at home. Status post supracondylar IM nailing 02/05. Doing well postoperatively. Pain well controlled. He has been up with physical therapy. -Postoperative care per orthopedic team -Pain control -Physical therapy -Weightbearing as tolerated Mixed delirium-probably multifactorial with some suspicion for underlying dementia. Family reports increasing difficulty with memory over the past 6 months. No evidence for infection or alcohol withdrawal. -Melatonin at bedtime Maintenance issues - - DVT prophylaxis -mechanical - GI prophylaxis -not indicated - Nutrition -regular diet Disposition -I would anticipate discharge home after the hospital stay Primary care physician -Dr. Ines Shirley M.D.
[2020-02-08] MEDS: traMADol 50 MG Tab PO PRN ×2 (14:23→23:49)
[2020-02-08] MEDS ORDERED: Nicotine 21 MG/24 Hr Patch TRDERM PRN (18:12)
[2020-02-08] MEDS ORDERED: Haloperidol Lactate 5 MG/ML SDV IVPUSH ONE (18:13)
[2020-02-08] MEDS: Gabapentin 100 MG Cap PO SCH (20:10)
[2020-02-08] MEDS ORDERED: Melatonin 3 MG Tab PO SCH (21:00)
[2020-02-09] MEDS: Enoxaparin 40 MG/0.4 ML Syringe SUBCUT SCH (08:25)
[2020-02-09] MEDS: Metoprolol Succinate 25 MG Tab.ER PO SCH (08:26)
[2020-02-09] MEDS: Ezetimibe 10 MG Tab PO SCH (08:27)
[2020-02-09] MEDS: Gabapentin 100 MG Cap PO SCH (08:27)
--- NOTE | 2020-02-09 11:04 | PCM.DCSUM1 ---
Discharge Summary - Hospital Course Brief History: 79-year-old male with history of hypertension and tobacco dependence who presented with right hip pain after a fall at home. He was admitted for surgical management of an intertrochanteric right hip fracture. Diagnosis: Stroke: No - Discharge Data Discharge Date: 02/09/20 Discharge Disposition: Home, Self-Care 01 Condition: Good - Referral to Home Health Primary Care Physician: Emmanuel Paige MD - Discharge Diagnosis/Problem(s) (1) Closed intertrochanteric fracture of right hip SNOMED Code(s): 35345630, [id number] ICD Code: S72.141A - DISPLACED INTERTROCHANTERIC FRACTURE OF RIGHT FEMUR, INIT Status: Acute Qualifiers: Encounter type: initial encounter Fracture alignment: nondisplaced Qualified Code(s): S72.144A - Nondisplaced intertrochanteric fracture of right femur, initial encounter for closed fracture - Patient Summary/Data Consults: Consultations 02/06/20 11:55 Consult to Physician [CONS] Routine Consulting Provider: Con Frazier Call Completed to Consulting Physician: Yes Reason for Consult: right hip fracture Person Notified: ANDROID IOS DEVELOPER Date Notified: 02/06/20 02/06/20 14:12 PT Evaluation and Treatment [CONS] Routine Please Evaluate and Treat. PT Reason for Consult: Post op Ortho Surgery Special Instructions: WBAT on right This query below is only for informational purposes and is not editable. Admission Diagnosis/Problem: Fracture of hip 02/06/20 14:13 Consult to Case Management/Controls Engineer [CONS] Routine Comment: Physician Instructions: Service(s) to be Consulted: Case Management Reason for Consult: Plan for Discharge Consult to Occupational Therapy [OT Evaluation and Treatment] [CONS] Routine Please Evaluate and Treat. OT Reason for Consult: ADL's This query below is only for informational purposes and is not editable. Admission Diagnosis/Problem: Fracture of hip Hospital Course: Will presented to the emergency room with right hip pain a couple of days after falling at home. Imaging in the emergency room suggested an intertrochanteric fracture of the right hip. He was admitted to the hospital for surgical fixation. Later in the afternoon following admission the patient had an uneventful IM nailing and screw fixation to repair the fracture. Postoperati vely he had some hypertension and confusion. By the next morning the blood pressure and confusion seem to have improved. Physically he was doing well and pain was very well controlled. Unfortunately he developed some increasing confusion as the day went on. This was worse the second day after surgery. Eventually he did receive a dose of Haldol and since then has not had any significant confusion. Mental status seems to be back to baseline. His pain is been well controlled with Tylenol. He has been up and moving well and is doing quite well with physical therapy. His vital signs have all been stable. Hemoglobin has been stable. I believe he is stable and safe for discharge at this point. He will be going home with his and some additional family members will be assisting in the short-term. He will be weightbearing as tolerated on the right hip. Outpatient physical therapy is set up. He does have a walker at home. - Patient Instructions Diet: Regular Diet as Tolerated Activity: As Tolerated Showering/Bathing: May Shower Notify Provider of: Fever, Increased Pain, Swelling and Redness, Drainage Other/Special Instructions: 1. You were in the hospital for management of a right hip fracture. This fracture required surgical repair and you now have a wil as well as 2 screws that were used to repair the fracture. You may bear weight as tolerated on the right hip. We have set you up for physical therapy in your hometown to help with your recovery. You may use acetaminophen 650 mg every 4 hours as needed for pain. To help reduce your risk of blood clots I would recommend that you take aspirin 325 mg once daily for 1 month. You may stop it after that time. 2. You may cover the wound on your right lateral leg with 4 x 4 gauze pads and secure them with tape if needed to protect the area. You may shower but no tub bathing until the incision has healed further. Please notify your primary care provider or the emergency room if you have increasing redness, swelling or drainage around your incision sites. 3. Continue your other home medications as previously prescribed. - Discharge Plan *PRESCRIPTION DRUG MONITORING PROGRAM REVIEWED*: Not Applicable *COPY OF PRESCRIPTION DRUG MONITORING REPORT IN PATIENT CRISTIAN: Not Applicable Prescriptions/Med Rec: Aspirin [Ecotrin EC] 325 mg PO DAILY #30 tab.ec Home Medications: Home Meds Acetaminophen [Tylenol Extra Strength] 650 mg PO Q6H PRN 05/05/13 [History] Ezetimibe 10 mg PO DAILY 02/06/20 [History] Metoprolol Succinate 25 mg PO DAILY 02/06/20 [History] Aspirin [Ecotrin EC] 325 mg PO DAILY #30 tab.ec 02/09/20 [Rx] Oxygen Therapy Mode: Room Air Patient Handouts: Hip Fracture Treated With ORIF, Care After Referrals: Devan Mirza, PT [Physical Therapist] - 02/12/20 8:30 am (Please arrive at 8:00AM to register and complete paper work prior to your appointment. Your therapy appointment will be at [facility] located at [address] [place] [address]) Con Frazier MD [Physician] - 02/21/20 12:30 pm - Discharge Summary/Plan Comment DC Time >30 min.: No - Patient Data Vitals - Most Recent: Last Vital Signs Temp 36.4 C 02/09/20 10:19 Pulse 70 02/09/20 10:19 Resp 18 02/09/20 10:19 BP 126/73 02/09/20 10:19 Pulse Ox 97 02/09/20 10:19 Weight - Most Recent: 79.832 kg I&O - Last 24 hours: Intake & Output 02/08/20 02/09/20 02/09/20 22:59 06:59 14:59 Intake Total 480 800 Output Total 200 Balance 480 -200 800 Med Orders - Current: Current Medications Acetaminophen (Tylenol) 650 mg PO Q4H PRN PRN Reason: Pain (Mild 1-3)/fever Last Admin: 02/08/20 07:30 Dose: 650 mg Documented by: Ezetimibe (Zetia) 10 mg PO DAILY [facility] Last Admin: 02/09/20 08:27 Dose: 10 mg Documented by: Enoxaparin Sodium (Lovenox) 40 mg SUBCUT DAILY [facility] Last Admin: 02/09/20 08:25 Dose: 40 mg Documented by: Gabapentin (Neurontin) 200 mg PO TID [facility] Last Admin: 02/09/20 08:27 Dose: 200 mg Documented by: Magnesium Hydroxide (Milk Of Magnesia) 30 ml PO Q12H PRN PRN Reason: Constipation Melatonin (Melatonin) 9 mg PO BEDTIME [facility] Last Admin: 02/08/20 20:10 Dose: 9 mg Documented by: Metoprolol Succinate (Toprol Xl) 25 mg PO DAILY [facility] Last Admin: 02/09/20 08:26 Dose: 25 mg Documented by: Nicotine (Habitrol) 21 mg TRDERM DAILY PRN PRN Reason: craving Ondansetron HCl (Zofran) 4 mg IV Q6H PRN PRN Reason: Nausea/Vomiting Ondansetron HCl (Zofran Odt) 4 mg PO Q6H PRN PRN Reason: Nausea able to take PO Senna/Docusate Sodium (Senna Plus) 1 tab PO BID PRN PRN Reason: Constipation Last Admin: 02/09/20 09:05 Dose: 1 tab Documented by: Tramadol HCl (Ultram) 50 mg PO Q4H PRN PRN Reason: Pain (moderate 4-6) Last Admin: 02/08/20 23:49 Dose: 50 mg Documented by: Discontinued Medications Bupivacaine HCl (Marcaine 0.5%) Confirm Administered Dose 50 ml .ROUTE .STK-MED ONE Stop: 02/06/20 11:53 Fentanyl (Sublimaze) Confirm Administered Dose 100 mcg .ROUTE .STK-MED ONE Stop: 02/06/20 10:43 Haloperidol Lactate (Haldol) 5 mg IVPUSH ONETIME ONE Stop: 02/08/20 18:14 Last Admin: 02/08/20 18:47 Dose: 5 mg Documented by: Hydromorphone HCl (Dilaudid) 0.5 mg IVPUSH Q2H PRN PRN Reason: Pain (severe 7-10) Last Admin: 02/06/20 15:08 Dose: 0.5 mg Documented by: Lactated Ringer's (Ringers, Lactated) 1,000 mls @ 100 mls/hr IV ASDIRECTED [facility] Last Admin: 02/07/20 00:57 Dose: 100 mls/hr Documented by: Cefazolin Sodium/Dextrose 2 gm (/ Premix) 50 mls @ 100 mls/hr IV ONETIME ONE Stop: 02/06/20 13:34 Last Admin: 02/06/20 13:07 Dose: 100 mls/hr Documented by: Cefazolin Sodium/Dextrose 1 gm (/ Premix) 50 mls @ 100 mls/hr IV Q8H [facility] Stop: 02/07/20 05:29 Last Admin: 02/07/20 04:14 Dose: 100 mls/hr Documented by: Lorazepam (Ativan) 0.5 mg IVPUSH Q4H PRN PRN Reason: Nausea/Vomiting Melatonin (Melatonin) 9 mg PO BEDTIME PRN PRN Reason: Sleep Last Admin: 02/07/20 20:17 Dose: 9 mg Documented by: Midazolam HCl (Versed 1 Mg/Ml) Confirm Administered Dose 2 mg .ROUTE .STK-MED ONE Stop: 02/06/20 10:43 Oxycodone HCl (Oxycodone) 5 - 10 mg PO Q4H PRN PRN Reason: Pain Last Admin: 02/07/20 20:17 Dose: 5 mg Documented by: Propofol (Diprivan 20 Ml) Confirm Administered Dose 200 mg .ROUTE .STK-MED ONE Stop: 02/06/20 10:43 *Q Meaningful Use (DIS) - VTE *Q VTE Pharmacological Contraindications *Q: Patient Scheduled Surgery
--- NOTE | 2020-02-18 13:27 | OR ---
DATE OF PROCEDURE: 02/06/2020 SURGEON: Con Frazier MD PREOPERATIVE DIAGNOSIS: Intertrochanteric fracture, right hip. POSTOPERATIVE DIAGNOSIS: Intertrochanteric fracture, right hip. PROCEDURE PERFORMED: Intramedullary fixation, right intertrochanteric fracture, using Synthes TFN device. ANESTHESIA: Spinal. INDICATIONS: Mr. Ward is a pleasant 79-year-old gentleman who sustained a fall at his home approximately 3 days prior to admission. He had significant hip pain with weightbearing at home which did not improve, and he eventually presented to the emergency room. Initial x-rays were suggestive of a nondisplaced intertrochanteric fracture which was confirmed on CT scan. He is, therefore, taken to the operating room for fixation. Risks, benefits, and potential complications of the procedure were discussed. DESCRIPTION OF PROCEDURE: After adequate anesthesia was obtained, the patient was placed on the fracture table. The right hip was prepped and draped in the sterile fashion. An incision was made from the tip of the greater trochanter proximally and carried down through the subcutaneous tissues. Hemostasis was obtained with electrocautery. Tensor fascia was split in line with its fibers, and blunt dissection carried down to the greater trochanter. A guidepin was then advanced under fluoroscopic guidance into the intramedullary canal. A flexible reamer was placed over this. A 10 mm diameter TFN intramedullary nail was placed across the fracture site and into the proximal shaft. Position was confirmed using fluoroscopy. A second small incision was made just distal to the greater trochanter, and the guide for the helical blade was placed. A guidepin was then advanced into the central portion of the femoral head and neck, and position was confirmed on AP and lateral views with fluoroscopy. This was measured, lateral cortex was drilled, and the helical blade was then advanced flush with the lateral cortex. Insertion handle and guide were removed. Cannula for the distal locking screw was placed through a separate small stab incision. This was positioned against the lateral cortex and drilled. This was measured, and locking screw was placed. Position was confirmed on fluoroscopy. A flexible screwdriver used to lock the helical blade in place, and the insertion device was removed. Final position was confirmed on AP and lateral images. The wounds were then irrigated. The tensor fascia was closed in interrupted fashion with 0 Vicryl. Skin was closed with 2-0 Vicryl and a running 3-0 Monocryl. Steri-Strips were applied. Sterile dressings were then placed. The patient tolerated the procedure very well. There were no complications. Taken from the operating room in stable condition. Con Frazier MD /[id number]
== END 2020-02-09 12:15 | disposition home or self-care (01) | DRG 482 ==
LOC: JP.ED 07:16 → JP.MS 10:57
PROVIDERS: ADMIT Internal Medicine; ATTEND Specialist
PROC: 0QS636Z Reposition Right Upper Femur with Intramedullary Internal Fixation Device, Percutaneous Approach (ICD-10-PCS; principal; 2020-02-06)
DX: S72.144A Nondisplaced intertrochanteric fracture of right femur, initial encounter for closed fracture (principal); R41.0 Disorientation, unspecified; I97.3 Postprocedural hypertension; H54.7 Unspecified visual loss; H91.90 Unspecified hearing loss, unspecified ear; K59.09 Other constipation; E78.00 Pure hypercholesterolemia, unspecified; I10 Essential (primary) hypertension; F17.200 Nicotine dependence, unspecified, uncomplicated; Z20.828 Contact with and (suspected) exposure to other viral communicable diseases; F03.90 Unspecified dementia, unspecified severity, without behavioral disturbance, psychotic disturbance, mood disturbance, and anxiety; Z88.6 Allergy status to analgesic agent; K59.00 Constipation, unspecified; Z98.49 Cataract extraction status, unspecified eye; M19.90 Unspecified osteoarthritis, unspecified site; Z88.8 Allergy status to other drugs, medicaments and biological substances; Q60.0 Renal agenesis, unilateral; F17.210 Nicotine dependence, cigarettes, uncomplicated; Z79.899 Other long term (current) drug therapy; W00.0XXA Fall on same level due to ice and snow, initial encounter; Y92.009 Unspecified place in unspecified non-institutional (private) residence as the place of occurrence of the external cause
CPT/HCPCS: 36415; 72170 ×2; 73552 ×2; 73700 ×2; 80048; 85025; 99285; J2250; J2704; J3010; U0002; 85018; 85027; 97110-GP; 97116-GP; 97162-GP; 97165-GO; 97530-GP; 97535-GO; 97535-GP; 99284; A9270-GY; C1713; C1776; J0690; J1170; J1630; J1650; J3490; J7120

== ENCOUNTER 2022-05-14 16:03 | Inpatient (IN) | payer MEDICARE, BC ==
[2022-05-14] MEDS ORDERED: Sodium Chloride 0.9% 10 ML Syringe FLUSH PRN (17:34)
[2022-05-14 17:51] LABS: ESTIMATED GFR 38 mL/min (>60)
[2022-05-14 18:25] LABS: CORONAVIRUS COVID-19 NAA POSITIVE (NEGATIVE)
[2022-05-14] MEDS ORDERED: cefTRIAXone 1 GM in Sodium Chloride 0.9% 50 ML IV ONE (18:28)
[2022-05-14] MEDS: Sodium Chloride 0.9% 1,000 ML IV SCH (18:46)
[2022-05-14] MEDS ORDERED: Ondansetron 4 MG/2 ML SDV IV PRN (20:50)
[2022-05-14] MEDS ORDERED: Magnesium Hydroxide 400 MG/5 ML Susp 30 ML Cup PO PRN (20:50)
[2022-05-14] MEDS ORDERED: Ondansetron 4 MG Tab.DIS PO PRN (20:50)
[2022-05-14] MEDS ORDERED: Nicotine 14 MG/24 Hr Patch TRDERM SCH (20:50)
[2022-05-14] MEDS ORDERED: Pantoprazole 40 MG Tab.CR PO SCH (20:50)
[2022-05-14] MEDS ORDERED: Lidocaine 2% Jelly 10 ML Urojet MUCMEM ONE (21:15)
[2022-05-14] MEDS: Donepezil 10 MG Tab PO SCH (21:31)
[2022-05-14] MEDS: Lactobacillus Rhamnosus GG (Probiotic) Cap PO SCH (21:31)
[2022-05-14] MEDS: Melatonin 3 MG Tab PO PRN (21:31)
[2022-05-14] MEDS: Ezetimibe 10 MG Tab PO SCH (21:33)
[2022-05-15] MEDS: Acetaminophen 325 MG Tab PO PRN (02:58)
[2022-05-15] MEDS: Sodium Chloride 0.9% 1,000 ML IV SCH ×2 (05:25→15:45)
[2022-05-15] MEDS: Enoxaparin 40 MG/0.4 ML Syringe SUBCUT SCH (10:40)
[2022-05-15] MEDS: Lactobacillus Rhamnosus GG (Probiotic) Cap PO SCH ×2 (10:40→21:09)
[2022-05-15] MEDS: Ezetimibe 10 MG Tab PO SCH (21:09)
[2022-05-15] MEDS: Donepezil 10 MG Tab PO SCH (21:09)
[2022-05-15] MEDS: Pantoprazole 40 MG Tab.CR PO SCH (21:09)
[2022-05-15] MEDS: Nicotine 14 MG/24 Hr Patch TRDERM SCH (21:10)
[2022-05-15] MEDS: Melatonin 3 MG Tab PO PRN (22:06)
[2022-05-16] MEDS: Acetaminophen 325 MG Tab PO PRN ×3 (00:25→21:25)
[2022-05-16] MEDS: Sodium Chloride 0.9% 1,000 ML IV SCH (00:27)
[2022-05-16] MEDS: Lactobacillus Rhamnosus GG (Probiotic) Cap PO SCH ×2 (10:26→21:21)
[2022-05-16] MEDS: Enoxaparin 40 MG/0.4 ML Syringe SUBCUT SCH (10:26)
[2022-05-16] MEDS ORDERED: Tamsulosin 0.4 MG Cap.ER PO ONE (13:00)
[2022-05-16] MEDS ORDERED: Bisacodyl 10 MG Supp RECTAL ONE (19:13)
[2022-05-16] MEDS: Donepezil 10 MG Tab PO SCH (21:21)
[2022-05-16] MEDS: Pantoprazole 40 MG Tab.CR PO SCH (21:21)
[2022-05-16] MEDS: Nicotine 14 MG/24 Hr Patch TRDERM SCH (21:21)
[2022-05-16] MEDS: Ezetimibe 10 MG Tab PO SCH (21:22)
[2022-05-16] MEDS: Melatonin 3 MG Tab PO PRN (21:25)
[2022-05-17] MEDS ORDERED: Bisacodyl 5 MG Tab PO ONE (05:00)
[2022-05-17] MEDS: Tamsulosin 0.4 MG Cap.ER PO SCH (08:06)
[2022-05-17] MEDS: Lactobacillus Rhamnosus GG (Probiotic) Cap PO SCH ×2 (08:06→20:30)
[2022-05-17] MEDS: Enoxaparin 40 MG/0.4 ML Syringe SUBCUT SCH (08:06)
[2022-05-17] MEDS ORDERED: Metoprolol Succinate 25 MG Tab.ER PO SCH (09:00)
[2022-05-17] MEDS: Nicotine 14 MG/24 Hr Patch TRDERM SCH (20:30)
[2022-05-17] MEDS: Donepezil 10 MG Tab PO SCH (20:31)
[2022-05-17] MEDS: Pantoprazole 40 MG Tab.CR PO SCH (20:31)
[2022-05-17] MEDS: Ezetimibe 10 MG Tab PO SCH (20:31)
[2022-05-17] MEDS: Melatonin 3 MG Tab PO PRN (20:35)
[2022-05-18] MEDS: Enoxaparin 40 MG/0.4 ML Syringe SUBCUT SCH (08:26)
[2022-05-18] MEDS: Tamsulosin 0.4 MG Cap.ER PO SCH (08:39)
[2022-05-18] MEDS: Lactobacillus Rhamnosus GG (Probiotic) Cap PO SCH ×2 (08:39→20:39)
[2022-05-18] MEDS: Nicotine 14 MG/24 Hr Patch TRDERM SCH (20:39)
[2022-05-18] MEDS: Pantoprazole 40 MG Tab.CR PO SCH (20:39)
[2022-05-18] MEDS: Ezetimibe 10 MG Tab PO SCH (20:39)
[2022-05-18] MEDS: Melatonin 3 MG Tab PO PRN (20:39)
[2022-05-18] MEDS: Donepezil 10 MG Tab PO SCH (20:39)
[2022-05-19] MEDS: Lactobacillus Rhamnosus GG (Probiotic) Cap PO SCH ×2 (08:45→20:36)
[2022-05-19] MEDS: Tamsulosin 0.4 MG Cap.ER PO SCH (08:45)
[2022-05-19] MEDS: Acetaminophen 325 MG Tab PO PRN ×2 (12:10→17:14)
[2022-05-19] MEDS: Metoprolol Succinate 25 MG Tab.ER PO SCH (12:38)
[2022-05-19] MEDS: Melatonin 3 MG Tab PO PRN (20:36)
[2022-05-19] MEDS: Pantoprazole 40 MG Tab.CR PO SCH (20:36)
[2022-05-19] MEDS: Nicotine 14 MG/24 Hr Patch TRDERM SCH (20:36)
[2022-05-19] MEDS: Ezetimibe 10 MG Tab PO SCH (20:36)
[2022-05-19] MEDS: Donepezil 10 MG Tab PO SCH (20:37)
[2022-05-20] MEDS: Metoprolol Succinate 25 MG Tab.ER PO SCH (09:09)
[2022-05-20] MEDS: Tamsulosin 0.4 MG Cap.ER PO SCH (09:10)
[2022-05-20] MEDS: Lactobacillus Rhamnosus GG (Probiotic) Cap PO SCH ×2 (09:10→21:14)
[2022-05-20] MEDS: Acetaminophen 325 MG Tab PO PRN (09:29)
[2022-05-20] MEDS: Melatonin 3 MG Tab PO PRN (21:13)
[2022-05-20] MEDS: Ezetimibe 10 MG Tab PO SCH (21:14)
[2022-05-20] MEDS: Nicotine 14 MG/24 Hr Patch TRDERM SCH (21:14)
[2022-05-20] MEDS: Donepezil 10 MG Tab PO SCH (21:14)
[2022-05-20] MEDS: Pantoprazole 40 MG Tab.CR PO SCH (21:14)
[2022-05-21] MEDS: Acetaminophen 325 MG Tab PO PRN (07:20)
[2022-05-21] MEDS: Metoprolol Succinate 25 MG Tab.ER PO SCH (08:41)
[2022-05-21] MEDS: Lactobacillus Rhamnosus GG (Probiotic) Cap PO SCH ×2 (08:41→20:48)
[2022-05-21] MEDS: Enoxaparin 40 MG/0.4 ML Syringe SUBCUT SCH (08:41)
[2022-05-21] MEDS: Tamsulosin 0.4 MG Cap.ER PO SCH (08:41)
[2022-05-21] MEDS ORDERED: Sodium Chloride 0.9% 250 ML IV SCH (14:15)
[2022-05-21] MEDS: Donepezil 10 MG Tab PO SCH (20:48)
[2022-05-21] MEDS: Nicotine 14 MG/24 Hr Patch TRDERM SCH (20:48)
[2022-05-21] MEDS: Pantoprazole 40 MG Tab.CR PO SCH (20:48)
[2022-05-21] MEDS: Ezetimibe 10 MG Tab PO SCH (20:49)
[2022-05-22] MEDS: Metoprolol Succinate 25 MG Tab.ER PO SCH (08:13)
[2022-05-22] MEDS: Tamsulosin 0.4 MG Cap.ER PO SCH (08:20)
[2022-05-22] MEDS: Lactobacillus Rhamnosus GG (Probiotic) Cap PO SCH ×2 (08:20→21:43)
[2022-05-22] MEDS: Nicotine 14 MG/24 Hr Patch TRDERM SCH (21:31)
[2022-05-22] MEDS: Donepezil 10 MG Tab PO SCH (21:43)
[2022-05-22] MEDS: Pantoprazole 40 MG Tab.CR PO SCH (21:43)
[2022-05-22] MEDS: Ezetimibe 10 MG Tab PO SCH (21:43)
[2022-05-23] MEDS: Metoprolol Succinate 25 MG Tab.ER PO SCH (09:38)
[2022-05-23] MEDS: Tamsulosin 0.4 MG Cap.ER PO SCH (09:38)
[2022-05-23] MEDS: Lactobacillus Rhamnosus GG (Probiotic) Cap PO SCH ×2 (09:39→20:40)
[2022-05-23] MEDS: Acetaminophen 325 MG Tab PO PRN (10:23)
[2022-05-23] MEDS: Acetaminophen 325 MG Tab PO SCH ×2 (13:00→18:26)
[2022-05-23] MEDS: Ezetimibe 10 MG Tab PO SCH (20:41)
[2022-05-23] MEDS: Pantoprazole 40 MG Tab.CR PO SCH (20:41)
[2022-05-23] MEDS: Donepezil 10 MG Tab PO SCH (20:42)
[2022-05-23] MEDS: Nicotine 14 MG/24 Hr Patch TRDERM SCH (20:43)
[2022-05-24] MEDS: Acetaminophen 325 MG Tab PO SCH ×9 (01:12→21:21)
[2022-05-24] MEDS: Tamsulosin 0.4 MG Cap.ER PO SCH (08:36)
[2022-05-24] MEDS: Lactobacillus Rhamnosus GG (Probiotic) Cap PO SCH ×2 (08:36→20:44)
[2022-05-24] MEDS: Metoprolol Succinate 25 MG Tab.ER PO SCH (08:36)
[2022-05-24] MEDS: Nicotine 14 MG/24 Hr Patch TRDERM SCH (20:44)
[2022-05-24] MEDS: Donepezil 10 MG Tab PO SCH (20:44)
[2022-05-24] MEDS: Pantoprazole 40 MG Tab.CR PO SCH (20:44)
[2022-05-24] MEDS: Ezetimibe 10 MG Tab PO SCH (20:44)
[2022-05-25] MEDS: Acetaminophen 325 MG Tab PO SCH ×3 (01:54→10:18)
[2022-05-25] MEDS: Metoprolol Succinate 25 MG Tab.ER PO SCH (08:18)
[2022-05-25] MEDS: Tamsulosin 0.4 MG Cap.ER PO SCH (08:18)
[2022-05-25] MEDS: Lactobacillus Rhamnosus GG (Probiotic) Cap PO SCH (08:18)
== END 2022-05-25 12:15 | DRG 177 ==
LOC: JP.ED 16:03 → JP.MS 19:33 → OBSVTOIN 05-16 11:29
PROVIDERS: ADMIT Internal Medicine; ATTEND Internal Medicine
PROC: 8E0ZXY6 Isolation (ICD-10-PCS; principal; 2022-05-16)
DX: U07.1 COVID-19 (principal); J12.82 Pneumonia due to coronavirus disease 2019; S32.010A Wedge compression fracture of first lumbar vertebra, initial encounter for closed fracture; J44.0 Chronic obstructive pulmonary disease with (acute) lower respiratory infection; N20.1 Calculus of ureter; N17.9 Acute kidney failure, unspecified; Z66 Do not resuscitate; F17.210 Nicotine dependence, cigarettes, uncomplicated; G30.9 Alzheimer's disease, unspecified; F02.80 Dementia in other diseases classified elsewhere, unspecified severity, without behavioral disturbance, psychotic disturbance, mood disturbance, and anxiety; E86.0 Dehydration; N18.31 Chronic kidney disease, stage 3a; W18.30XA Fall on same level, unspecified, initial encounter; I12.9 Hypertensive chronic kidney disease with stage 1 through stage 4 chronic kidney disease, or unspecified chronic kidney disease; D69.6 Thrombocytopenia, unspecified; E78.5 Hyperlipidemia, unspecified; E78.00 Pure hypercholesterolemia, unspecified; K59.09 Other constipation; E11.22 Type 2 diabetes mellitus with diabetic chronic kidney disease; M19.90 Unspecified osteoarthritis, unspecified site; R41.89 Other symptoms and signs involving cognitive functions and awareness; R29.6 Repeated falls; R63.0 Anorexia; Z98.890 Other specified postprocedural states; Y92.008 Other place in unspecified non-institutional (private) residence as the place of occurrence of the external cause; Z88.6 Allergy status to analgesic agent; Z88.8 Allergy status to other drugs, medicaments and biological substances; Z79.82 Long term (current) use of aspirin; Z79.899 Other long term (current) drug therapy; Z86.010 Personal history of colon polyps; Z98.49 Cataract extraction status, unspecified eye
CPT/HCPCS: 0241U; 36415; 51701; 70450; 70450-26; 71045; 71045-26; 74176; 74176-26; 80048; 80053; 81001; 83605; 83690; 83735; 84100; 84145; 85025; 85027; 86140; 93005; 93010; 96361; 96365; 96372; 96375; 97110-GP; 97161-GP; 97165-GO; 97535-GO; 99223; 99233; 99239; 99285; 99285-25; A9270-GY; G0378; J0696; J1650; J2405; J3490; J7030; J7050